=== PATIENT | female | born 1950 | race Two or more races ===

== ENCOUNTER 2019-08-09 20:27 | Emergency (ER) | payer BC, OTHER ==
[~2019-08-09] VITALS: Ht 162.6 cm; Wt 68.0 kg
[2019-08-09] MEDS ORDERED: ACETAMINOPHEN 325MG TABLET PO ONE (22:30)
[2019-08-09 23:05] LABS: HEMATOCRIT. 42.9 % (36.0-48.0); MEAN CORPUSCULAR HEMOGLOBIN 28.9 pg (28.0-32.0); MEAN CORPUSCULAR VOLUME 88.3 fL (81.0-99.0); MEAN PLATELET VOLUME 8.4 fl (7.4-10.4); PLATELET 220 x1000/uL (130-400); RED BLOOD CELL COUNT 4.85 mill/uL (4.2-5.4); RED CELL DISTRIBUTION WIDTH 14.8 % (11.6-14.6)
[2019-08-09 23:12] LABS: CHLORIDE 104 mEq/L (98-107)
[2019-08-09 23:17] LABS: PLATELET ESTIMATE NORMAL
[2019-08-10] MEDS ORDERED: ESMOLOL 2500MG PREMIX 250 ML IV ONE (00:39)
[2019-08-10] MEDS ORDERED: LIDOCAINE HCL 1% 20ML VIAL (Pyxis) INJ ONE (00:44)
[2019-08-10] MEDS ORDERED: FENTANYL CITRATE/PF 50MCG/ML 2ML VIAL IV ONE ×2 (00:45→02:00)
[2019-08-10] MEDS ORDERED: ESMOLOL 2500MG PREMIX 250 ML IV NR (00:45)
[2019-08-10] MEDS ORDERED: NICARDIPINE 40MG/200ML PREMIX 200 ML IV ONE (01:22)
[2019-08-10] MEDS ORDERED: NICARDIPINE 40MG/200ML PREMIX 200 ML IV PRN (02:00)
[2019-08-10 02:09] VITALS: BP 102/43
[2019-08-10] MEDS ORDERED: ONDANSETRON HCL 4MG/2ML INJ ONE (02:29)
[2019-08-10] MEDS ORDERED: ONDANSETRON HCL 4MG/2ML INJ IV ONE (02:30)
== END 2019-08-10 03:12 | disposition short-term general hospital (02) ==
LOC: ER 20:27
DX: J93.9 Pneumothorax, unspecified (principal); I71.00 Dissection of unspecified site of aorta; T14.8XXA Other injury of unspecified body region, initial encounter; J44.9 Chronic obstructive pulmonary disease, unspecified; V49.9XXA Car occupant (driver) (passenger) injured in unspecified traffic accident, initial encounter; Y93.9 Activity, unspecified; Y92.410 Unspecified street and highway as the place of occurrence of the external cause
CPT/HCPCS: 36415; 70450; 71045; 71260; 72125; 74177; 80053; 84484; 85025; 96365; 96375; 99285; J2405; J3010; J3490